=== PATIENT | female | born 2000 | race Caucasian/White ===

== ENCOUNTER 2019-04-18 15:39 | Outpatient (CLI) | payer MEDICAID, OTHER ==
[~2019-04-18] VITALS: Ht 165.1 cm; Wt 71.2 kg
[~2019-04-18 15:39] MED LIST: PNV11TAB PO
[2019-04-18 16:10] VITALS: BP 114/67; PULSE 95; RESP 19; Ht 165.1 cm; Wt 71.2 kg
== END 2019-04-18 18:10 | disposition home or self-care (01) ==
LOC: OBT 15:39 → L-D 15:44 → OBT 18:10
PROVIDERS: ATTEND Obstetrics & Gynecology
DX: O26.892 Other specified pregnancy related conditions, second trimester (principal); Z3A.24 24 weeks gestation of pregnancy; A05.9 Bacterial foodborne intoxication, unspecified
CPT/HCPCS: 80053; 81001; 85025; 87045; 87086; Z7500; G0463